=== PATIENT | female | born 1960 | race Caucasian/White ===

== ENCOUNTER 2016-12-21 11:57 | Emergency (ER) | payer MEDICARE, MEDICAID ==
[2016-12-21 13:06] LABS: BILIRUBIN,URINE NEGATIVE (NEGATIVE)
[2016-12-21] MEDS ORDERED: oxyCOD/ACETAMIN 5 MG/325 MG TABLET PO STA (13:17)
--- NOTE | 2016-12-21 13:20 | ED Physician Documentation ---
PD HPI BACK PAIN - Stated complaint Stated Complaint: BACK PX - Chief complaint Chief Complaint: Back Pain - History obtained from History obtained from: Patient - History of Present Illness Timing - onset: Other (56-year-old woman with history of chronic back pain due to scoliosis and degenerative disc disease has moved to the area recently and is between pain management doctors, has a new appointment next week but needs a few pain pills because her back pain is worse than normal, it is in the low lumbar spine radiating up into the parathoracic area up to the shoulders and worse with motion. There is no weakness, numbness, or tingling in the legs or extremities except for chronic right leg numbness over the lateral calf. No saddle anesthesia or incontinence, no fevers.) Review of Systems Constitutional: denies: Fever, Chills Throat: denies: Dental pain / toothache, Sore throat Cardiac: denies: Chest pain / pressure, Palpitations Respiratory: denies: Dyspnea, Cough PD PAST MEDICAL HISTORY - Past Medical History Past Medical History: Yes Cardiovascular: Hypertension, High cholesterol Respiratory: None Neuro: Headache/migraine, Seizure disorder Endocrine/Autoimmune: None GI: None : None HEENT: Chronic vision loss Psych: Depression, Anxiety Musculoskeletal: Scoliosis Derm: None - Past Surgical History Past Surgical History: Yes 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 - Present Medications Home Medications: Ambulatory Orders Medication Instructions Recorded Confirmed Amitriptyline [Elavil] 10 mg PO DAILY 12/21/16 12/21/16 Atenolol 25 mg PO BID 12/21/16 12/21/16 Baclofen [Lioresal] 10 mg PO BID 12/21/16 12/21/16 Hydrochlorothiazide 25 mg PO DAILY 12/21/16 12/21/16 Naproxen 375 mg PO BID 12/21/16 12/21/16 Ondansetron [Zofran Odt] 4 mg PO DAILY 12/21/16 12/21/16 Oxycodone HCl/Acetaminophen 1 - 2 tab PO Q4H PRN #15 tablet 12/21/16 [Percocet 5-325 mg Tablet] Prazosin [Minipress] 1 mg PO DAILY 12/21/16 12/21/16 Rosuvastatin Calcium 1 tab PO DAILY 12/21/16 12/21/16 busPIRone [Buspar] 5 mg PO PRN PRN 12/21/16 12/21/16 - Allergies Allergies/Adverse Reactions: Allergies Allergy/AdvReac Type Severity Reaction Status Date / Time No Known Drug Allergies Allergy Verified 11/03/14 17:46 - Social History Does the pt smoke?: No Smoking Status: Never smoker Does the pt drink ETOH?: Yes Does the pt have substance abuse?: No - Immunizations Immunizations are current?: Yes PD ED PE NORMAL - Vitals Vital signs reviewed: Yes - General General: Alert and oriented X 3, No acute distress - Abdomen Abdomen: Normal bowel sounds, Soft, Non tender - Back Back: No CVA TTP, No spinal TTP - Extremities Extremities: Other (The patient has equal and normal Achilles and patellar reflexes bilaterally. Normal sensation in all areas of the legs. Patient denies saddle anesthesia. Normal strength in flexion-extension at the ankles, knees, and flexion of the hips.) - Neuro Neuro: Alert and oriented X 3, Normal speech - Psych Psych: Normal mood, Normal affect Results - Vitals Vitals: Vital Signs - 24 hr 12/21/16 12:08 Temperature 36.5 C Heart Rate 68 Respiratory 16 Rate Blood Pressure 134/97 H O2 Saturation 97 Oxygen O2 Source Room air PD MEDICAL DECISION MAKING - ED course ED course: This patient has seemingly uncomplicated musculoskeletal back pain. The patient has no "red flags." Specifically denies IV drug use, fevers, incontinence, saddle anesthesia. Spinal epidural abscess was considered, given that the patient has no fever, is not diabetic, has no spinal tenderness, does not use IV drugs, and has no bilateral neurologic symptoms, the diagnosis of spinal epidural abscess is considered exceedingly unlikely. ANODIZER was reviewed, her prescription history corroborates with her story and is not currently in pain management. Discussed with her that a limited number of pain medications would be given, but she needs to keep her appointment next week. Departure - Departure Disposition: 01 Home, Self Care Clinical Impression: Back pain Qualifiers: Back pain location: low back pain Chronicity: chronic Back pain laterality: midline Sciatica presence: without sciatica Qualified Code(s): M54.5 - Low back pain; G89.29 - Other chronic pain Condition: Good Record reviewed to determine appropriate education?: Yes Instructions: ED Chronic Pain Management, ED Low Back Pain Injury Prescriptions: Oxycodone HCl/Acetaminophen [Percocet 5-325 mg Tablet] 1 - 2 tab PO Q4H PRN #15 tablet PRN Reason: Pain Comments: Call your doctor to arrange a follow-up appointment, make the next available appointment. In the interim, return anytime if worse or if new symptoms develop. As discussed further pain medications must come for your primary care physician or a pain management doctor. Your blood pressure was elevated today on check into the emergency department. This does not mean that you have hypertension, it is a common phenomenon to come to the emergency department and have elevated blood pressure. I recommend that she see your primary care physician within the week to have it rechecked when you are feeling better. Do not drink or drive while taking narcotic pain medication. Note that many narcotic pain relievers also contain Tylenol/acetaminophen. Please ensure that your total dose of acetaminophen from all sources does not exceed 3 g (3000 mg) per day. You may get constipated while on this medication. Take a stool softener such as Colace twice a day while you are on it. Also add an tkrh-qup-yojsvao laxative such as senna or MiraLAX on any day that you do not have a bowel movement. If you received a narcotic pain medication or sedative while in the emergency department, do not drive for the next 24 hours.
[2016-12-21] MEDS ORDERED: oxyCOD/ACETAMIN 5 MG/325 MG TABLET PO ONE (13:25)
[2016-12-21 13:34] VITALS: BP 147/102
[2016-12-21 13:35] LABS: UA w/ MICROSCOPIC CHARGE YES
[2016-12-21 13:56] LABS: UR CULTURE IF IND NOT INDICATED
== END 2016-12-21 13:33 | disposition home or self-care (01) ==
LOC: ED 11:57
DX: M54.5 Low back pain (principal); G89.29 Other chronic pain; R03.0 Elevated blood-pressure reading, without diagnosis of hypertension; M51.36 Other intervertebral disc degeneration, lumbar region; E78.00 Pure hypercholesterolemia, unspecified; G40.909 Epilepsy, unspecified, not intractable, without status epilepticus; M41.9 Scoliosis, unspecified
CPT/HCPCS: 81001; 99283; A9270; 81003; 87086

== ENCOUNTER 2017-02-25 09:41 | Outpatient (CLI) | payer MEDICARE, MEDICAID | END 2017-02-25 09:42 | disposition home or self-care (01) | LOC: SC 09:41 | PROVIDERS: ATTEND Internal Medicine Pulmonary Disease | DX: G47.10 Hypersomnia, unspecified (principal); G47.8 Other sleep disorders | CPT/HCPCS: 99203; G0463; 99212 ==

== ENCOUNTER 2017-04-28 19:17 | Outpatient (CLI) | payer MEDICARE, MEDICAID | END 2017-04-28 19:18 | disposition home or self-care (01) | LOC: SC 19:17 | PROVIDERS: ATTEND Internal Medicine Pulmonary Disease | DX: G47.10 Hypersomnia, unspecified (principal); R51 Headache; R06.83 Snoring | CPT/HCPCS: 95810 ==

== ENCOUNTER 2017-06-27 15:40 | Emergency (ER) | payer MEDICARE, MEDICAID ==
[2017-06-27 16:30] LABS: BASOPHILS # (AUTO) 0.1 10^3/uL (0.0-0.1); BASOPHILS % (AUTO) 0.9 %; EOSINOPHILS # (AUTO) 0.1 10^3/uL (0.0-0.7); EOSINOPHILS % (AUTO) 1.9 %; HGB - HEMOGLOBIN 12.4 g/dL (12.0-16.0); LYMPHOCYTES # (AUTO) 1.4 10^3/uL (1.5-3.5); LYMPHOCYTES % (AUTO) 19.5 %; MEAN CORPUSCULAR HEMOGLOBIN 27.4 pg (27.0-31.0); MEAN CORPUSCULAR HGB CONC 32.1 g/dL (32.0-36.0); MEAN CORPUSCULAR VOLUME 85.4 fL (81.0-99.0); MEAN PLATELET VOLUME 8.6 fL (7.9-10.8); MONOCYTES # (AUTO) 0.6 10^3/uL (0.0-1.0); MONOCYTES % (AUTO) 7.9 %; NEUTROPHILS % (AUTO) 69.8 %; PLT - PLATELET COUNT 306 10^3/uL (130-450); RED BLOOD COUNT 4.51 10^6/uL (4.20-5.40); RED CELL DISTRIBUTION WIDTH 15.7 % (12.0-15.0); WHITE BLOOD COUNT 7.2 x10^3/uL (4.8-10.8)
--- NOTE | 2017-06-27 16:36 | XRAY Report ---
EXAM: CHEST RADIOGRAPHY EXAM DATE: 06/27/2017 04:02 PM. CLINICAL HISTORY: Chest pain. COMPARISON: 11/03/2014. TECHNIQUE: 2 views. FINDINGS: Lungs/Pleura: No focal opacities evident. No pleural effusion. No pneumothorax. Normal volumes. Mediastinum: Heart and mediastinal contours are unremarkable. Other: None. IMPRESSION: No acute cardiopulmonary abnormality. [facility] Referring Provider Line: [phone] SITE ID: [id number]
--- NOTE | 2017-06-27 16:36 | XRAY Preliminary Report ---
Exam: XR CHEST 2 VIEW X-RAY IMPRESSION: No acute cardiopulmonary abnormality. [facility] SITE ID: [id number]
[2017-06-27 16:43] LABS: ALBUMIN 4.6 g/dL (3.2-5.5); ALBUMIN/GLOBULIN RATIO 1.1 (1.0-2.2); BILIRUBIN,TOTAL 0.7 mg/dL (0.2-1.0); CALCIUM 9.2 mg/dL (8.5-10.3); CREATININE 1.7 mg/dL (0.4-1.0); TOTAL PROTEIN 8.8 g/dL (6.7-8.2)
--- NOTE | 2017-06-27 16:59 | ED Physician Documentation ---
PD HPI CHEST PAIN - Stated complaint Stated Complaint: CP/NUMBNESS TINGLING - Chief complaint Chief Complaint: General - History obtained from History obtained from: Patient - History of Present Illness Timing - onset: How many hours ago (5-6), Today Timing - onset during: Rest Timing - duration: Hours Timing - details: Gradual onset Quality: Aching, Sharp, Pain, Other. No: Pressure, Tightness Location: Substernal Radiation: Neck Improved by: No: Rest, Oxygen, Nitro (did not have any to try) Associated symptoms: No: Shortness of air, Diaphoresis, Nausea, Vomiting, Feeling faint / dizzy, General Weakness Similar symptoms before: Has not had sx before Review of Systems Ten Systems: 10 systems reviewed and negative Constitutional: denies: Fever, Chills Eyes: reports: Reviewed and negative Ears: reports: Reviewed and negative Nose: reports: Reviewed and negative Throat: reports: Reviewed and negative Cardiac: reports: Reviewed and negative Respiratory: reports: Reviewed and negative GI: reports: Reviewed and negative : reports: Reviewed and negative Skin: reports: Reviewed and negative Musculoskeletal: reports: Reviewed and negative Neurologic: reports: Reviewed and negative Psychiatric: reports: Reviewed and negative Endocrine: reports: Reviewed and negative Immunocompromised: reports: Reviewed and negative PD PAST MEDICAL HISTORY - Past Medical History Past Medical History: Yes Cardiovascular: Hypertension, High cholesterol Respiratory: None Neuro: Headache/migraine, Seizure disorder Endocrine/Autoimmune: None GI: None : None HEENT: Chronic vision loss Psych: Depression, Anxiety Musculoskeletal: Scoliosis Derm: None - Past Surgical History Past Surgical History: Yes 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 - Present Medications Home Medications: Ambulatory Orders Medication Instructions Recorded Confirmed Amitriptyline [Elavil] 10 mg PO DAILY 12/21/16 12/21/16 Atenolol 25 mg PO BID 12/21/16 12/21/16 Baclofen [Lioresal] 10 mg PO BID 12/21/16 12/21/16 Naproxen 375 mg PO BID 12/21/16 12/21/16 Ondansetron [Zofran Odt] 4 mg PO DAILY 12/21/16 12/21/16 Oxycodone HCl/Acetaminophen 1 - 2 tab PO Q4H PRN #15 tablet 12/21/16 [Percocet 5-325 mg Tablet] Prazosin [Minipress] 1 mg PO DAILY 12/21/16 12/21/16 Rosuvastatin Calcium 1 tab PO DAILY 12/21/16 12/21/16 busPIRone [Buspar] 5 mg PO PRN PRN 12/21/16 12/21/16 hydroCHLOROthiazide 25 mg PO DAILY 12/21/16 12/21/16 [Hydrochlorothiazide] - Allergies Allergies/Adverse Reactions: Allergies Allergy/AdvReac Type Severity Reaction Status Date / Time No Known Drug Allergies Allergy Verified 11/03/14 17:46 - Social History Does the pt smoke?: No Smoking Status: Never smoker Does the pt drink ETOH?: Yes Does the pt have substance abuse?: No - Family History Family history: reports: Non contributory. denies: Sudden - Immunizations Immunizations are current?: Yes PD ED PE NORMAL - Vitals Vital signs reviewed: Yes - General General: Alert and oriented X 3, No acute distress, Well developed/nourished - HEENT HEENT: Moist mucous membranes, Pharynx benign - Neck Neck: Supple, no meningeal sign, No adenopathy - Cardiac Cardiac: RRR, No murmur - Respiratory Respiratory: Clear bilaterally - Abdomen Abdomen: Normal bowel sounds, Soft, Non tender, Non distended - Female Female : Deferred - Rectal Rectal: Deferred - Back Back: No CVA TTP - Derm Derm: Normal color, Warm and dry - Neuro Neuro: Alert and oriented X 3, No motor deficit, Normal speech Results - Vitals Vitals: Oxygen O2 Source Room air - EKG (time done) 15:49 Rate: Rate (enter#) (56) Rhythm: NSR Lucile: Normal Intervals: Normal GA QRS: Normal Ischemia: Normal ST segments. No: ST elevation c/w ischemia, ST depression Compare to prior EKG: Old EKG unavailable - Labs Labs: Laboratory Tests 06/27/17 06/27/17 06/27/17 16:21 16:21 16:21 WBC 7.2 RBC 4.51 Hgb 12.4 Hct 38.6 MCV 85.4 MCH 27.4 MCHC 32.1 RDW 15.7 H Plt Count 306 MPV 8.6 Neut # 5.0 Lymph # 1.4 L Laporte # 0.6 Eos # 0.1 Baso # 0.1 Absolute Nucleated RBC 0.00 Nucleated RBC % 0.0 Sodium 134 L Potassium 4.5 Chloride 99 L Carbon Dioxide 26 Anion Gap 9.0 BUN 27 H Creatinine 1.7 H Estimated GFR (MDRD) 31 L Glucose 91 Calcium 9.2 Magnesium Total Bilirubin 0.7 AST 25 ALT 21 Alkaline Phosphatase 105 Troponin I < 0.04 Total Protein 8.8 H Albumin 4.6 Globulin 4.2 Albumin/Globulin Ratio 1.1 Lipase 17 L 06/27/17 06/27/17 17:52 17:52 WBC RBC Hgb Hct MCV MCH MCHC RDW Plt Count MPV Neut # Lymph # Laporte # Eos # Baso # Absolute Nucleated RBC Nucleated RBC % Sodium Potassium Chloride Carbon Dioxide Anion Gap BUN Creatinine Estimated GFR (MDRD) Glucose Calcium Magnesium 2.5 Total Bilirubin AST ALT Alkaline Phosphatase Troponin I < 0.04 Total Protein Albumin Globulin Albumin/Globulin Ratio Lipase - Rads (name of study) chest xray Radiology: Prelim report reviewed, EMP read contemporaneously (normal) neck angio Radiology: Prelim report reviewed (no signs of blockages, dissection, anueyrms, masses.) PD MEDICAL DECISION MAKING - ED course Complexity details: reviewed results, considered differential, d/w patient Departure - Departure Disposition: Home, Self Care Clinical Impression: Neck pain Chest pain Qualifiers: Chest pain type: precordial pain Qualified Code(s): R07.2 - Precordial pain Condition: Stable Record reviewed to determine appropriate education?: Yes Instructions: ED Chest Pain NonCardiac Follow-Up: Leigh Brooks DNP [Primary Care Provider] - Comments: Drink lots of fluids. Regular medications. No signs of heart attack or heart failure as a cause of the chest pain. Your EKG is normal as are your blood tests and x-ray. The neck CT scan appears normal without any signs of acute abnormality there. Tylenol if needed for pains. Follow-up with your primary care in the next few days if not improved. Discharge Date/Time: 06/27/17 20:10
[2017-06-27] MEDS ORDERED: SODIUM CHLORIDE 0.9% 1,000 ML IV ONE (17:39)
--- NOTE | 2017-06-27 18:50 | CT Preliminary Report ---
Exam: CT CERVICAL SPINE W/O IMPRESSION: 1. Negative for fracture and subluxation. 2. Moderate degenerative disk disease at C5-C7. [facility] SITE ID: [id number]
--- NOTE | 2017-06-27 18:50 | CT Report ---
EXAM: CT CERVICAL SPINE WITHOUT CONTRAST DATE: 06/27/2017 06:22 PM. HISTORY: Neck pain today. COMPARISONS: None. TECHNIQUE: Thin-section axial images were acquired of the cervical spine without contrast. Post-proce ssing: Coronal and sagittal reformats. Other: None. In accordance with CT protocol optimization, one or more of the following dose reduction techniques w ere utilized for this exam: automated exposure control, adjustment of mA and/or KV based on patient s ize, or use of iterative reconstructive technique. FINDINGS: Alignment: No significant subluxation or scoliosis. Bones: Negative for an acute fracture. There is multilevel degenerative disease. No lytic or blastic bone lesion. Interspace Levels/Facets: There is moderate disk height loss at C5-C6 and C6-C7. There is moderate facet joint space narrowing and spurring in the upper cervical spine. No significant central spinal canal stenosis. Musculature: Normal. No fatty atrophy. Other: Trachea is midline. Negative for apical pneumothorax. IMPRESSION: 1. Negative for fracture and subluxation. 2. Moderate degenerative disk disease at C5-C7. [facility] Referring Provider Line: [phone] SITE ID: [id number]
[2017-06-27 19:36] VITALS: BP 152/82
== END 2017-06-27 20:10 | disposition home or self-care (01) ==
LOC: ED 15:40
DX: M54.2 Cervicalgia (principal); R07.9 Chest pain, unspecified; I10 Essential (primary) hypertension; E78.00 Pure hypercholesterolemia, unspecified
CPT/HCPCS: 36415; 71046; 72125; 80053; 83690; 83735; 84484; 85025; 93005; 96360; 96361; 99283; 99284

== ENCOUNTER 2017-10-30 14:40 | Outpatient (CLI) | payer MEDICARE, MEDICAID ==
[2017-10-30 18:53] LABS: BASOPHILS % (AUTO) 0.3 %; EOSINOPHILS # (AUTO) 0.1 10^3/uL (0.0-0.7); EOSINOPHILS % (AUTO) 1.8 %; HGB - HEMOGLOBIN 11.8 g/dL (12.0-16.0); LYMPHOCYTES # (AUTO) 1.7 10^3/uL (1.5-3.5); LYMPHOCYTES % (AUTO) 34.5 %; MEAN CORPUSCULAR HEMOGLOBIN 28.4 pg (27.0-31.0); MEAN CORPUSCULAR HGB CONC 31.6 g/dL (32.0-36.0); MEAN CORPUSCULAR VOLUME 89.9 fL (81.0-99.0); MEAN PLATELET VOLUME 12.7 fL (7.9-10.8); MONOCYTES # (AUTO) 0.4 10^3/uL (0.0-1.0); MONOCYTES % (AUTO) 8.9 %; NEUTROPHILS # (AUTO) 2.6 10^3/uL (1.5-6.6); NEUTROPHILS % (AUTO) 54.5 %; PLT - PLATELET COUNT 268 10^3/uL (130-450); RED BLOOD COUNT 4.15 10^6/uL (4.20-5.40); WHITE BLOOD COUNT 4.8 x10^3/uL (4.8-10.8)
== END 2017-10-30 14:41 ==
LOC: LAB.N 14:40
PROVIDERS: ATTEND Nurse Practitioner Gerontology
DX: E04.9 Nontoxic goiter, unspecified (principal); I10 Essential (primary) hypertension
CPT/HCPCS: 36415; 84443; 85025

== ENCOUNTER 2017-11-14 11:50 | Outpatient (CLI) | payer MEDICARE, MEDICAID ==
[2017-11-14 19:12] LABS: ALBUMIN/GLOBULIN RATIO 1.3 (1.0-2.2); ALKALINE PHOSPHATASE 83 IU/L (42-121); ALT ALANINE AMINOTRANSFERASE 11 IU/L (10-60); AST ASPARTATE AMINOTRANSFERASE 19 IU/L (10-42); BILIRUBIN,TOTAL 0.4 mg/dL (0.2-1.0); BUN - BLOOD UREA NITROGEN 15 mg/dL (6-20); CALCIUM 8.9 mg/dL (8.5-10.3); CARBON DIOXIDE - CO2 27 mmol/L (21-32); CHLORIDE 106 mmol/L (101-111); CHOL/HDL RATIO 8.2 (<4.4); CHOLESTEROL 287 mg/dL; CREATININE 1.2 mg/dL (0.4-1.0); GFR - MDRD 47 (>89); GLUCOSE 108 mg/dL (70-100); HDL CHOLESTEROL 35 mg/dL; LDL CHOLESTEROL,CALCULATED 192 mg/dL; LDL/HDL RATIO 5.5 (<4.4); SODIUM 137 mmol/L (135-145); TOTAL PROTEIN 7.2 g/dL (6.7-8.2); VLDL CHOLESTEROL 60 mg/dL
== END 2017-11-14 11:51 ==
LOC: LAB.N 11:50
PROVIDERS: ATTEND Nurse Practitioner Gerontology
DX: I10 Essential (primary) hypertension (principal); E78.5 Hyperlipidemia, unspecified
CPT/HCPCS: 36415; 80053; 80061; 83721

== ENCOUNTER 2020-02-04 13:15 | Outpatient (CLI) | payer MEDICARE, MEDICAID | END 2020-02-04 23:59 | disposition home or self-care (01) | LOC: LAB.R 13:15 | PROVIDERS: ATTEND Physician Assistant | DX: N76.0 Acute vaginitis (principal); N30.01 Acute cystitis with hematuria | CPT/HCPCS: 81599; 87086; 87181; 87480; 87510; 87660 ==

== ENCOUNTER 2020-02-10 16:30 | Outpatient (CLI) | payer MEDICARE, MEDICAID ==
[2020-02-10 21:11] LABS: BILIRUBIN,URINE NEGATIVE (NEGATIVE); GLUCOSE, URINE (UA) NEGATIVE (NEGATIVE); KETONES,URINE (UA) NEGATIVE (NEGATIVE); LEUKOCYTE ESTERASE, URINE NEGATIVE (NEGATIVE); NITRITE,URINE NEGATIVE (NEGATIVE); OCCULT BLOOD,URINE NEGATIVE (NEGATIVE); PROTEIN,URINE NEGATIVE (NEGATIVE); UROBILINOGEN,URINE 0.2 (NORMAL) E.U./dL (NORMAL)
[2020-02-10 21:20] LABS: BACTERIA,URINE Few /HPF (None Seen); CLARITY,URINE CLEAR (CLEAR); RBC,URINE None Seen /HPF (0-5); SQUAMOUS EPITHELIAL CELL,UR MANY Squamous (<= Few)
== END 2020-02-10 23:59 | disposition home or self-care (01) ==
LOC: LAB.R 16:30
PROVIDERS: ATTEND Physician Assistant Medical
DX: R30.0 Dysuria (principal)
CPT/HCPCS: 81001; 87086

== ENCOUNTER 2020-03-04 09:32 | Emergency (ER) | payer MEDICARE, MEDICAID ==
--- NOTE | 2020-03-04 10:11 | ED Physician Documentation ---
History of Present Illness - Stated complaint Stated Complaint: HEADACHE - Chief complaint Chief Complaint: Back Pain - History obtained from History obtained from: Patient - History of Present Illness Timing: How many weeks ago (worse for the past week), Chronic Pain level max: 7 Pain level now: 7 - Additonal information Additional information: 59-year-old female states that she has chronic neck and back pain from scoliosis. She states that her pain is increased over the past week or 2. Has used steroids and hydrocodone in the past. No neurological deficits. No numbness or tingling. No trauma. 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 - Present Medications Home Medications: Ambulatory Orders Medication Instructions Recorded Confirmed Amitriptyline [Elavil] 10 mg PO DAILY 12/21/16 12/21/16 hydroCHLOROthiazide 25 mg PO DAILY 12/21/16 12/21/16 [Hydrochlorothiazide] FLUoxetine [PROzac] 40 mg PO DAILY 03/04/20 03/04/20 HYDROcod/ACETAM 5/325 [[place] 5/325] 1 - 2 ea PO Q6H PRN #14 tablet 03/04/20 Ibuprofen [Motrin] 600 mg PO Q6H PRN 03/04/20 03/04/20 Methylprednisolone [Medrol] 4 mg PO DAILY #1 tab.ds.pk 03/04/20 Propranolol [Inderal] 40 mg PO BID 03/04/20 03/04/20 tiZANidine [Zanaflex] 4 mg PO Q8H 03/04/20 03/04/20 - Allergies Allergies/Adverse Reactions: Allergies Allergy/AdvReac Type Severity Reaction Status Date / Time No Known Drug Allergies Allergy Verified 03/04/20 09:43 - Social History Does the pt smoke?: No Smoking Status: Never smoker Does the pt drink ETOH?: Yes Does the pt have substance abuse?: No - Immunizations Immunizations are current?: Yes PD ED PE NORMAL - Vitals Vital signs reviewed: Yes - General General: Alert and oriented X 3, No acute distress - HEENT HEENT: Moist mucous membranes - Neck Neck: Supple, no meningeal sign, No bony TTP - Cardiac Cardiac: RRR - Respiratory Respiratory: No respiratory distress, Clear bilaterally - Abdomen Abdomen: Soft, Non tender, Non distended - Back Back: No spinal TTP - Derm Derm: Warm and dry - Extremities Extremities: Normal ROM s pain - Neuro Neuro: Alert and oriented X 3, 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 Will prescribe her a small amount of pain medication and place her on a Medrol dose pack. We will have her follow-up with her doctor for further care. No acute neurological deficits. No trauma. Medication for imaging at this time. Patient counseled regarding signs and symptoms for which I believe and urgent re-evaluation would be necessary. Patient with good understanding of and agreement to plan and is comfortable going home at this time This document was made in part using voice recognition software. While efforts are made to proofread this document, sound alike and grammatical errors may occur. Departure - Departure Disposition: 01 Home, Self Care Clinical Impression: Neck pain Back pain Qualifiers: Back pain location: thoracic back pain Chronicity: chronic Back pain laterality: bilateral Qualified Code(s): M54.6 - Pain in thoracic spine Condition: Good Instructions: ED Neck Back Pain General Follow-Up: Beronica Dixon ARNP [Primary Care Provider] - Within 1 week Prescriptions: Methylprednisolone [Medrol] 4 mg PO DAILY #1 tab.ds.pk HYDROcod/ACETAM 5/325 [[place] 5/325] 1 - 2 ea PO Q6H PRN #14 tablet PRN Reason: Pain Comments: Use the medications as prescribed. Follow-up with your doctor for further care. Return if you worsen. Do not drink alcohol or drive while on narcotic pain medicine. Note that many narcotic pain relievers also contain tylenol/acetaminophen. Please ensure that your total dose of acetaminophen from all sources does not exceed 3 grams (3000mg) per day. You may constipated on this medication, take a stool softener such as "Colace" twice a day while you are on it. Also recommend a dmcp-ajh-wlibhig laxative such as senna or MiraLAX any day that you do not have a bowel movement. If you received narcotic pain medication in the emergency department, do not drive or operate machinery for the next 24 hours. Discharge Date/Time: 03/04/20 10:20
[2020-03-04 10:12] VITALS: BP 146/100
== END 2020-03-04 10:20 | disposition home or self-care (01) ==
LOC: ED 09:32
DX: M54.2 Cervicalgia (principal); M54.6 Pain in thoracic spine; I10 Essential (primary) hypertension
CPT/HCPCS: 99282; 99284

== ENCOUNTER 2020-06-15 08:45 | Outpatient (CLI) | payer MEDICARE, MEDICAID ==
--- NOTE | 2020-06-15 10:07 | XRAY Report ---
PROCEDURE: Cervical Spine 2 View INDICATIONS: LOWER CERVICAL PAIN TECHNIQUE: 3 view(s) of the cervical spine were acquired. COMPARISON: CT cervical spine, 06/27/2017. FINDINGS: Bones: No fractures or dislocations to the T1 level. There is grade 1 anterolisthesis of C4 on C5. Moderate degenerative disc disease at C5-C6 and C6-C7. The lateral facet arthropathy at multiple leve ls, most pronounced at C3-C4, C4-C5 and C5-C6. The lateral masses of C1 appear intact on the odontoid view. No suspicious bony lesions. Soft tissues: No prevertebral soft tissue swelling. IMPRESSION: Degenerative disc and facet disease in cervical spine as described. Reviewed by: Laverne Subramanian MD on 06/15/2020 10:05 AM PDT Approved by: Laverne Subramanian MD on 06/15/2020 10:05 AM PDT Station ID: [id number]
--- NOTE | 2020-06-15 13:26 | XRAY Report ---
PROCEDURE: Lumbar Spine w/Flex/Ext INDICATIONS: FLEX EXT. TO EVALUATE STABILITY W/GRADING TECHNIQUE: 5 views of the lumbar spine acquired. COMPARISON: X-ray lumbar spine,3 view, 05/19/2013. FINDINGS: Bones: 5 apw-euz-eimavvj vertebrae are present. There is trace anterolisthesis of L3 on L4 and L4 o n L5, which is increased on flexion. No vertebral body compression fractures. No suspicious bony le sions. There is degenerative disease, severe at L5-S1 and mild at L3-L4 and L4-L5. Severe facet arth ropathy at L4-L5 and L5-S1. Soft tissues: Overlying bowel gas pattern is normal. No suspicious soft tissue calcifications. Flexion/extension: There is decreased range of motion. The anterolisthesis at L3-L4 and L4-L5 appear s more pronounced with flexion and unchanged with extension. IMPRESSION: 1. Degenerative disc and facet disease in lumbar spine. 2. Grade 1 anterolisthesis at L3-L4 and L4-L5, which is more pronounced with flexion. Reviewed by: Laverne Subramanian MD on 06/15/2020 1:25 PM PDT Approved by: Laverne Subramanian MD on 06/15/2020 1:25 PM PDT Station ID: [id number]
== END 2020-06-15 08:46 | disposition home or self-care (01) ==
LOC: DI.S 08:45
PROVIDERS: ATTEND Registered Nurse
DX: M43.12 Spondylolisthesis, cervical region (principal); M47.812 Spondylosis without myelopathy or radiculopathy, cervical region; M50.322 Other cervical disc degeneration at C5-C6 level; M43.16 Spondylolisthesis, lumbar region; M47.816 Spondylosis without myelopathy or radiculopathy, lumbar region; M51.36 Other intervertebral disc degeneration, lumbar region

== ENCOUNTER 2021-06-04 12:18 | Outpatient (CLI) | payer MEDICARE, MEDICAID | END 2021-06-04 12:19 | disposition critical access hospital (66) | LOC: EMS 12:18 | DX: M54.2 Cervicalgia (principal); M54.9 Dorsalgia, unspecified | CPT/HCPCS: A0425; A0429 ==

== ENCOUNTER 2021-06-04 12:55 | Emergency (ER) | payer MEDICARE, MEDICAID ==
[2021-06-04] MEDS ORDERED: predniSONE 20 MG TABLET PO STA (13:05)
[2021-06-04] MEDS ORDERED: oxyCODONE 5 MG TABLET PO STA (13:05)
--- NOTE | 2021-06-04 13:08 | ED Physician Documentation ---
PD HPI NECK PAIN - Stated complaint Stated Complaint: NECK PX - History obtained from History obtained from: Patient - Additional information Additional information: 61-year-old woman who has had ongoing neck problems since the age of 18 when she had an accident. More recently has been in physical therapy for this and this week they put her in a soft collar. Since then she has developed increasing neck pain and a pins and needle sensation in the neck going up into the occiput and both hands. There is no wvpy-wes-tkjrqir nor numbness at this juncture. She denies any numbness or symptoms below the chest and there is no saddle anest hesia or incontinence. No fevers. She is on meloxicam and Flexeril for this which is insufficient. 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 - Present Medications Home Medications: Ambulatory Orders Medication Instructions Recorded Confirmed Amitriptyline [Elavil] 10 mg PO DAILY 12/21/16 12/21/16 hydroCHLOROthiazide 25 mg PO DAILY 12/21/16 12/21/16 [Hydrochlorothiazide] FLUoxetine [PROzac] 40 mg PO DAILY 03/04/20 03/04/20 HYDROcod/ACETAM 5/325 [Gering 5/325] 1 - 2 ea PO Q6H PRN #14 tablet 03/04/20 Ibuprofen [Motrin] 600 mg PO Q6H PRN 03/04/20 03/04/20 Propranolol [Inderal] 40 mg PO BID 03/04/20 03/04/20 methylPREDNISolone [Medrol] 4 mg PO DAILY #1 tab.ds.pk 03/04/20 tiZANidine [Zanaflex] 4 mg PO Q8H 03/04/20 03/04/20 Oxycodone HCl/Acetaminophen 1 - 2 each PO Q6H PRN #20 tablet 06/04/21 [Percocet 5-325 mg Tablet] predniSONE [Deltasone] 20 mg PO [id number] #21 tab 06/04/21 - Allergies Allergies/Adverse Reactions: Allergies Allergy/AdvReac Type Severity Reaction Status Date / Time No Known Drug Allergies Allergy Verified 06/04/21 13:04 - Social History Does the pt smoke?: No Smoking Status: Never smoker Does the pt drink ETOH?: Yes Does the pt have substance abuse?: No - Immunizations Immunizations are current?: Yes - POLST Patient has POLST: No PD ED PE NORMAL - Vitals Vital signs reviewed: Yes - General General: Alert and oriented X 3, No acute distress - HEENT HEENT: PERRL, EOMI - Neck Neck: Other (Mild tenderness to the upper neck, full range of motion) - Back Back: No CVA TTP, No spinal TTP - Derm Derm: Normal color, Warm and dry - Neuro Neuro: Alert and oriented X 3, No motor deficit, Normal speech, Other (Mildly diminished sensation diffusely in the right arm not in a dermatomal pattern with normal excellence manager strength, thumb extension, interosseous strength, and flexion extension of the wrist. Normal upper extremity reflexes.) Results - Vitals Vitals: Oxygen O2 Source Room air PD MEDICAL DECISION MAKING - ED course ED course: 61-year-old woman presents with cervical radiculopathy and some symptoms consistent with spinal stenosis. Discussed with her nonemergent need for outpatient work-up for same and will treat pain in the interim. Departure - Departure Disposition: 01 Home, Self Care Clinical Impression: Spinal stenosis Qualifiers: Spinal region: cervical Qualified Code(s): M48.02 - Spinal stenosis, cervical region Condition: Good Record reviewed to determine appropriate education?: Yes Instructions: ED Cervical Radiculopathy Prescriptions: predniSONE [Deltasone] 20 mg PO [id number] #21 tab Oxycodone HCl/Acetaminophen [Percocet 5-325 mg Tablet] 1 - 2 each PO Q6H PRN #20 tablet PRN Reason: pain Comments: As discussed, it seems like you are probably developing symptomatic spinal stenosis. Talk with your doctor about an MRI of your neck. I sent your prescriptions electronically to [facility] in [place]. Return for new or worsening symptoms. I am prescribing a short course of narcotic pain medication for you. These are potentially dangerous and addictive medications that should be used carefully. These medications may constipate you. Take an yvgl-onm-ehclhkx stool softener (docusate) twice daily with plenty of water while taking these medications. If you go 24 hours without a bowel movement, take slau-qbb-ddfnhiz miralax, per package instructions. Do not drink or drive while taking these medications. If you received narcotic or sedating medications while in the emergency department, do not drive for 24 hours. Store this medication in a safe, secure place and out of reach of children. It is a violation of federal law to give or sell this medication to another person or to use in a manner other than prescribed. The ED will not refill narcotic prescriptions, including prescriptions lost or stolen. To dispose of unwanted medications: 1. [facility] [address] in [place] has a medication drop box. They accept prescription medications (in pill form) Saturday through Saturday 9:00 a.m. to 5:00 p.m. 2. [facility] accepts prescription medications (in pill form only) for disposal year round. Call for more information. 3. Contact the [facility] for the next [facility] sponsored prescription drug collection event. , [phone], or [phone]; Note that many narcotic pain relievers also contain Tylenol/acetaminophen. Please ensure that your total dose of acetaminophen from all sources does not exceed 3 g (3000 mg) per day.
[2021-06-04 13:15] VITALS: BP 185/90
== END 2021-06-04 15:47 | disposition home or self-care (01) ==
LOC: EDUNIT# → ED 12:55
DX: M48.02 Spinal stenosis, cervical region (principal)
CPT/HCPCS: 99282; 99283; A9270; J7512

== ENCOUNTER 2021-06-26 08:07 | Outpatient (CLI) | payer MEDICARE, MEDICAID ==
--- NOTE | 2021-06-26 16:18 | MRI Report ---
PROCEDURE: Cervical Spine W/O INDICATIONS: CERVICAL RADICULOPATHY, RIGHT TECHNIQUE: Noncontrast sagittal T1 spin echo and T2 fast spin echo, sagittal STIR, foraminal oblique sagittal T2 fast spin echo, and axial gradient echo or T2 fast spin echo through the cervical spine. COMPARISON: None. FINDINGS: Image quality: Excellent. Alignment and Curvature: There is normal bony alignment. Bone Marrow: Marrow demonstrates normal overall signal. Spinal Cord: Visualized spinal cord has normal size and signal. No cerebellar tonsillar herniation. Paraspinous Soft Tissues: No paravertebral masses. Prevertebral soft tissues are normal in thicknes s. C2-C3: Loss of disc signal. Mild, diffuse disc bulge. No central stenosis. No neural foraminal narrow ing. No neural compression. C3-C4: Loss of disc signal. Mild, diffuse disc bulge. Mild right and moderate left facet hypertroph y. No central stenosis. Mild bilateral neural foraminal narrowing. No neural compression. C4-C5: Loss of disc signal. Mild, diffuse disc bulge. Moderate right and mild left facet hypertrophy . Mild narrowing of the central canal. Mild bilateral neural foraminal narrowing. No neural compressi on. C5-C6: Loss of disc signal and height. Moderate, diffuse disc bulge. Mild bilateral facet hypertroph y. Moderate bilateral uncovertebral joint hypertrophy. Severe narrowing of the central canal with sli ght compression of the cervical spinal cord. Severe bilateral neural foraminal narrowing with ya pam of the exiting bilateral C6 nerve roots. C6-C7: Loss of disc signal and height. Mild, diffuse disc bulge. Mild bilateral facet hypertrophy. M oderate bilateral uncovertebral joint hypertrophy. Moderate narrowing of the central canal. Moderate bilateral neural foraminal narrowing. No neural compression. C7-T1: Loss of disc signal. Mild, diffuse disc bulge. No central stenosis. No neuroforaminal narrowi ng. No neural compression IMPRESSION: 1. Multilevel degenerative disc disease. 2. Multilevel facet uncovertebral arthropathy. 3. Severe C5-C6 central canal narrowing with slight compression of the cervical spinal cord. 4. Severe bilateral C5-C6 neural foraminal narrowing with compression of the exiting bilateral C6 ner ve roots. Reviewed by: Christiana Daly MD, PhD on 06/26/2021 4:17 PM PDT Approved by: Christiana Daly MD, PhD on 06/26/2021 4:17 PM PDT Station ID: [id number]
== END 2021-06-26 08:08 | disposition home or self-care (01) ==
LOC: DI 08:07
PROVIDERS: ATTEND Emergency Medicine
DX: M50.11 Cervical disc disorder with radiculopathy, high cervical region (principal); M48.02 Spinal stenosis, cervical region; M47.22 Other spondylosis with radiculopathy, cervical region

== ENCOUNTER 2023-09-30 08:16 | Emergency (ER) | payer MEDICARE, MEDICAID ==
[2023-09-30 08:30] VITALS: O2SAT 100
--- NOTE | 2023-09-30 09:20 | ED Physician Documentation ---
History of Present Illness - Stated complaint Stated Complaint: NUMBNESS-NECK TO ARMS, SOA - Chief complaint Chief Complaint: Neuro - History obtained from History obtained from: Patient, Family - History of Present Illness Timing: How many weeks ago (1) - Additonal information Additional information: 63-year-old Shivani aguayo has a history of degenerative disc disease in her neck and she has a history of cervical radiculopathy. She has had evaluation for sleep neck surgery at the [facility] and at a facility in [place]. She is recently returned from [place] and with the travel she has developed some increase in numbness in her upper shoulders and to the upper portion of her chest. Associated with this she has been having some flopping of her neck and she will choke periodically when her neck flops forward. She is using a soft collar and she has not used a hard collar previously. She is complaining of some urinary burning and a burning to the urethra that is constant as well. She denies history of HSV. Review of Systems Constitutional: reports: Myalgias, Fatigue. denies: Fever Eyes: denies: Decreased vision Ears: denies: Ear pain Nose: denies: Rhinorrhea / runny nose, Congestion Throat: denies: Sore throat Cardiac: denies: Chest pain / pressure, Palpitations Respiratory: denies: Dyspnea, Cough GI: reports: Nausea. denies: Abdominal Pain, Vomiting, Constipation, Diarrhea : reports: Dysuria, Frequency Skin: denies: Rash Musculoskeletal: reports: Neck pain. denies: Back pain, Extremity pain Neurologic: reports: Numbness. 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 - Present Medications Home Medications: Ambulatory Orders Medication Instructions Recorded Confirmed Ibuprofen [Motrin] 600 mg PO Q6H PRN 03/04/20 09/30/23 Baclofen [Lioresal] 1 tab PO DAILY 09/30/23 09/30/23 Ciprofloxacin HCl [Cipro] 500 mg PO BID #14 tablet 09/30/23 HYDROcod/ACETAM 5/325 [[place]el[place] 5/325] 1 - 2 tablet PO Q6H PRN #14 tablet 09/30/23 Hydromorphone HCl [Dilaudid] 1 tab PO PRN PRN 09/30/23 09/30/23 Lisinopril [Zestril] 1 tab PO DAILY 09/30/23 09/30/23 - Allergies Allergies/Adverse Reactions: Allergies Allergy/AdvReac Type Severity Reaction Status Date / Time No Known Drug Allergies Allergy Verified 09/30/23 08:29 - Social History Does the pt smoke?: No Smoking Status: Never smoker Does the pt drink ETOH?: Yes Does the pt have substance abuse?: No - Immunizations Immunizations are current?: Yes - POLST Patient has POLST: No PD ED PE NORMAL - Vitals Vital signs reviewed: Yes (normal ) - General General: Alert and oriented X 3, No acute distress, Well developed/nourished - HEENT HEENT: Atraumatic, PERRL, EOMI - Neck Neck: Supple, no meningeal sign, No bony TTP - Cardiac Cardiac: RRR, No murmur - Respiratory Respiratory: No respiratory distress, Clear bilaterally - Abdomen Abdomen: Soft, Non tender - Back Back: No CVA TTP, No spinal TTP - Derm Derm: Normal color, Warm and dry, No rash - Extremities Extremities: No deformity, No edema - Neuro Neuro: Alert and oriented X 3, 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, No motor deficit, No sensory deficit, Normal speech Eye Opening: Spontaneous Motor: Obeys Commands Verbal: Oriented GCS Score: 15 - Psych Psych: Normal mood, Normal affect Results - Vitals Vitals: Vital Signs - 24 hr 09/30/23 08:23 Temperature 36.5 C Heart Rate 72 Respiratory 20 Rate Blood Pressure 110/69 O2 Saturation 100 Oxygen O2 Source Room air - Labs Labs: Laboratory Tests 09/30/23 08:39 Urine Color YELLOW Urine Clarity HAZY Urine pH 6.0 Ur Specific [place] 1.025 Urine Protein TRACE Urine Glucose (UA) NEGATIVE Urine Ketones NEGATIVE Urine Occult Blood NEGATIVE Urine Nitrite POSITIVE H Urine Bilirubin NEGATIVE Urine Urobilinogen 0.2 (NORMAL) Ur Leukocyte Esterase SMALL H Urine RBC 0-5 Urine WBC >25 H Urine WBC Clumps PRESENT Ur Squamous Epith Cells FEW Squamous Urine Bacteria Moderate H Ur Microscopic Review INDICATED Urine Culture Comments INDICATED PD Medical Decision Making - ED course Complexity details: considered differential, d/w patient, d/w family Reviewed Lab Results: We reviewed a urinalysis which showed a specific gravity 1.025 was positive for nitrite with small leukocyte Estrace and greater than 25 white blood cells per high-powered field moderate bacteria and it did make the grade for culture.I interpreted these laboratory results to indicate the patient has urinary tract infection and she is symptomatic we will treat. ED course: 63-year-old female the history of cervical radiculopathy presents with increased pain and urinary symptoms has urinary tract infection we will treat urinary t ract infection we have provided a dose of dexamethasone the patient is having some improvement with this and she will need follow-up with her primary care doctor for referral to neurosurgery at the [facility]. Departure - Departure Disposition: 01 Home, Self Care Clinical Impression: Cervical radiculopathy UTI (urinary tract infection) Qualifiers: Urinary tract infection type: acute cystitis Hematuria presence: without hematuria Qualified Code(s): N30.00 - Acute cystitis without hematuria Condition: Stable Instructions: ED Cervical Radiculopathy, ED UTI Cystitis Female Follow-Up: Kim Mcdonald MD [Primary Care Provider] - Prescriptions: Ciprofloxacin HCl [Cipro] 500 mg PO BID #14 tablet HYDROcod/ACETAM 5/325 [Kelso 5/325] 1 - 2 tablet PO Q6H PRN #14 tablet PRN Reason: Pain Comments: Corrina, today it looks like you have some worsening of your cervical radiculopathy and my recommendation for this is to follow-up with Kim Mcdonald for referral back to the [facility] for further consideration of potential surgical intervention. Today we gave you a dose of dexamethasone and this should improve your symptoms over the next day and last about 2 to 3 days. In addition we found today that you have a urinary tract infection and I have E scribed some ciprofloxacin to the [facility] in [place]. In addition we have provided some narcotic pain reliever to use for the cervical radiculopathy. Forms: PCP List
[2023-09-30] MEDS: CHERRY SYRUP 10 ML UDC PO ONE (09:24)
[2023-09-30] MEDS: DEXAMETHASONE 10 MG/ML VIAL PO STA (09:24)
[2023-09-30 10:08] LABS: BILIRUBIN,URINE NEGATIVE (NEGATIVE); CLARITY,URINE HAZY (CLEAR); GLUCOSE, URINE (UA) NEGATIVE (NEGATIVE); KETONES,URINE (UA) NEGATIVE (NEGATIVE); LEUKOCYTE ESTERASE, URINE SMALL (NEGATIVE); NITRITE,URINE POSITIVE (NEGATIVE); OCCULT BLOOD,URINE NEGATIVE (NEGATIVE); PROTEIN,URINE TRACE mg/dL (NEGATIVE); UROBILINOGEN,URINE 0.2 (NORMAL) E.U./dL (NORMAL)
[2023-09-30 10:22] LABS: BACTERIA,URINE Moderate /HPF (None Seen); RBC,URINE 0-5 /HPF (0-5); SQUAMOUS EPITHELIAL CELL,UR FEW Squamous (<= Few); WBC CLUMPS,URINE PRESENT; WBC,URINE >25 /HPF (0-5)
[2023-09-30 10:56] VITALS: BP 122/82
== END 2023-09-30 10:53 | disposition home or self-care (01) ==
LOC: ED 08:16
DX: M54.12 Radiculopathy, cervical region (principal); N30.00 Acute cystitis without hematuria; I10 Essential (primary) hypertension; E78.00 Pure hypercholesterolemia, unspecified; F32.A Depression, unspecified; F41.9 Anxiety disorder, unspecified
CPT/HCPCS: 81001; 87086; 87181; 99283; A9270; 81003

== ENCOUNTER 2023-10-29 12:04 | Emergency (ER) | payer MEDICAID, MEDICARE ==
--- NOTE | 2023-10-29 12:21 | ED Physician Documentation ---
PD HPI NECK PAIN - Stated complaint Stated Complaint: NECK PX, CHEST NUMBNESS - Chief complaint Chief Complaint: Trauma Hd/Nk - History obtained from History obtained from: Patient - History of Present Illness Timing - onset: Today, How many days ago (She has had pain in her neck with previous imaging showing disc protrusions and nerve root impingements from the cervical area. Getting a referral to spine through her primary care. Has been wearing a collar at home for discomfort. 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 - Present Medications Home Medications: Ambulatory Orders Medication Instructions Recorded Confirmed Ibuprofen [Motrin] 600 mg PO Q6H PRN 03/04/20 09/30/23 Baclofen [Lioresal] 1 tab PO DAILY 09/30/23 09/30/23 Lisinopril [Zestril] 1 tab PO DAILY 09/30/23 09/30/23 methylPREDNISolone [Medrol] 4 mg PO DAILY #1 tab 10/29/23 - Allergies Allergies/Adverse Reactions: Allergies Allergy/AdvReac Type Severity Reaction Status Date / Time No Known Drug Allergies Allergy Verified 10/29/23 12:14 - Social History Does the pt smoke?: No Smoking Status: Never smoker Does the pt drink ETOH?: Yes Does the pt have substance abuse?: No - Immunizations Immunizations are current?: Yes - POLST Patient has POLST: No PD ED PE NORMAL - Vitals Vital signs reviewed: Yes - Neck Neck: No adenopathy, Other (She comes in wearing a [place] cervical collar that she has of her own and has worn fairly continually for the last month. She does have it off for showers and changing etc. but otherwise feels that it supports her neck.) - Cardiac Cardiac: RRR, No murmur - Respiratory Respiratory: No respiratory distress, Clear bilaterally - Abdomen Abdomen: Soft, Non tender - Derm Derm: Normal color, Warm and dry, No rash - Neuro Neuro: Alert and oriented X 3, No motor deficit, Other (There is decrease sensation to light touch in the anterior shoulders and to the bilateral anterior chest from the upper correction lower sternal area to just below the clavicles. Normal sensation below the breasts and down the rest of the abdomen. Normal sensation in the legs.) Results - Vitals Vitals: Vital Signs - 24 hr 10/29/23 10/29/23 10/29/23 12:08 12:14 12:21 Temperature 36.5 C Heart Rate 57 L 64 61 Respiratory 19 16 17 Rate Blood Pressure 129/82 H 118/72 149/87 H O2 Saturation 99 97 99 10/29/23 10/29/23 10/29/23 14:23 14:41 16:25 Temperature 36.3 C L Heart Rate 51 L 68 Respiratory 14 14 16 Rate Blood Pressure 93/75 106/78 O2 Saturation 96 99 Oxygen O2 Source Room air PD Medical Decision Making - ED course Complexity details: considered differential (The patient has known disc disease and nerve root impingement in the lower cervical area with pre-existing numbness in the bilateral shoulders and anterior upper chest. She states she was doing more physical activity the last few days and has now this morning numbness also down to the umbilicus.), d/w patient ED course: Certainly there is concern for other areas of nerve root impingement. Previously known lower cervical I would presume since her prior numbness areas h ave been essentially C5 across the upper chest and to shoulders. However she now has numbness down near the umbilicus and she claimed contiguously from upper chest to the bellybutton area which would incorporate multiple nerve roots. Therefore I would be concern for partial cord impingement in the central canal. Given new symptoms like this, I feel an urgent MRI would be appropriate of not only the cervical but also thoracic area. She has had prior imaging of her neck with the last being at the I believe. This was about over a year ago. No more recent imaging. The patient denies any diagnoses of spinal MS or other conditions. Her increased activity had been of trip to [place] for several days and returning home yesterday which included having to lift and pull luggage onto the train and carrying some herself. This would be unusual activity for her. Departure - Departure Disposition: 01 Home, Self Care Clinical Impression: Cervical radiculopathy Condition: Good Record reviewed to determine appropriate education?: Yes Instructions: ED Cervical Radiculopathy Follow-Up: Kim Mcdonald MD [Primary Care Provider] - Tomorrow Prescriptions: methylPREDNISolone [Medrol] 4 mg PO DAILY #1 tab Comments: I have included a copy of your MRI below. Your prescriptions were sent to [facility] in [place]. Please follow-up with your doctor tomorrow as scheduled. Please return if you worsen. EXAM: [id number] MRI/THORWO ([id number]) PROCEDURE: Thoracic Spine WO INDICATIONS: new numbness down to lower abd level TECHNIQUE: Noncontrast sagittal T1 spine echo and T2 fast spin echo, sagittal STIR, axial T1 and T2 fast spin echo through the thoracic spine. COMPARISON: None. FINDINGS: Image quality: Excellent. Alignment and Curvature: There is normal bony alignment. Bone Marrow: Marrow is of normal overall signal. No acute vertebral body compression fractures. Spinal Cord: Visualized spinal cord is normal in size and signal. Paraspinous Soft Tissues: No paravertebral masses. Miscellaneous: On axial images, central canal and foramina appear widely patent at all scanned levels. Disc bulge at T6-7, T3-4 and T8-9 causing mild effacement of the spinal canal. IMPRESSION: Mild multilevel degenerative disc disease, without significant spinal canal or neural foraminal narrowing. EXAM: [id number] MRI/CERVWO ([id number]) PROCEDURE: Cervical Spine WO INDICATIONS: increased numb/weak arms/chest TECHNIQUE: Noncontrast sagittal T1 spin echo and T2 fast spin echo, sagittal STIR, foraminal oblique sagittal T2 fast spin echo, and axial gradient echo or T2 fast spin echo through the cervical spine. COMPARISON: CT 09/27/2011 FINDINGS: Image quality: Excellent. Alignment and Curvature: There is normal bony alignment. Bone Marrow: Marrow demonstrates normal overall signal. Spinal Cord: Visualized spinal cord has normal size and signal. No cerebellar tonsillar herniation. Marked hydrocephalus. Paraspinous Soft Tissues: No paravertebral masses. Prevertebral soft tissues are normal in thickness. C2-C3: Central disc herniation. C3-C4: Normal in appearance. C4-C5: Broad-based disc bulge. Effacement of the spinal canal. C5-C6: Broad-based disc bulge and uncovertebral hypertrophy. Moderate spinal canal narrowing. Moderate to severe neural foraminal narrowing on the left. Moderate on the right. C6-C7: Broad-based disc bulge and uncovertebral hypertrophy. Mild effacement of the spinal cord. Mild bilateral neural foraminal narrowing. C7-T1: Normal in appearance. IMPRESSION: Marked hydrocephalus, similar to comparison CT. Multilevel degenerative disc disease. This is most prominent at C5-6, with moderate spinal canal narrowing, moderate to severe left and moderate right neural foraminal narrowing. Forms: PCP List Discharge Date/Time: 10/29/23 16:40
[2023-10-29] MEDS: DEXAMETHASONE 10 MG/ML VIAL IVP STA (12:49)
[2023-10-29] MEDS: KETOROLAC 15 MG/ML VIAL IVP STA (12:51)
[2023-10-29] MEDS: ONDANSETRON 4 MG/2 ML VIAL IVP STA (13:01)
[2023-10-29] MEDS: HYDROmorphone 1 MG/ML CARPUJECT IVP STA (13:02)
--- NOTE | 2023-10-29 16:02 | MRI Report ---
PROCEDURE: Cervical Spine WO INDICATIONS: increased numb/weak arms/chest TECHNIQUE: Noncontrast sagittal T1 spin echo and T2 fast spin echo, sagittal STIR, foraminal oblique sagittal T2 fast spin echo, and axial gradient echo or T2 fast spin echo through the cervical spine. COMPARISON: CT 09/27/2011 FINDINGS: Image quality: Excellent. Alignment and Curvature: There is normal bony alignment. Bone Marrow: Marrow demonstrates normal overall signal. Spinal Cord: Visualized spinal cord has normal size and signal. No cerebellar tonsillar herniation. Marked hydrocephalus. Paraspinous Soft Tissues: No paravertebral masses. Prevertebral soft tissues are normal in thicknes s. C2-C3: Central disc herniation. C3-C4: Normal in appearance. C4-C5: Broad-based disc bulge. Effacement of the spinal canal. C5-C6: Broad-based disc bulge and uncovertebral hypertrophy. Moderate spinal canal narrowing. Modera te to severe neural foraminal narrowing on the left. Moderate on the right. C6-C7: Broad-based disc bulge and uncovertebral hypertrophy. Mild effacement of the spinal cord. Mil d bilateral neural foraminal narrowing. C7-T1: Normal in appearance. IMPRESSION: Marked hydrocephalus, similar to comparison CT. Multilevel degenerative disc disease. This is most prominent at C5-6, with moderate spinal canal narr owing, moderate to severe left and moderate right neural foraminal narrowing. Reviewed by: Isra Moore MD on 10/29/2023 4:01 PM PDT Approved by: Isra Moore MD on 10/29/2023 4:01 PM PDT Station ID: [id number]
--- NOTE | 2023-10-29 16:05 | MRI Report ---
PROCEDURE: Thoracic Spine WO INDICATIONS: new numbness down to lower abd level TECHNIQUE: Noncontrast sagittal T1 spine echo and T2 fast spin echo, sagittal STIR, axial T1 and T2 fast spin ec ho through the thoracic spine. COMPARISON: None. FINDINGS: Image quality: Excellent. Alignment and Curvature: There is normal bony alignment. Bone Marrow: Marrow is of normal overall signal. No acute vertebral body compression fractures. Spinal Cord: Visualized spinal cord is normal in size and signal. Paraspinous Soft Tissues: No paravertebral masses. Miscellaneous: On axial images, central canal and foramina appear widely patent at all scanned level s. Disc bulge at T6-7, T3-4 and T8-9 causing mild effacement of the spinal canal. IMPRESSION: Mild multilevel degenerative disc disease, without significant spinal canal or neural foraminal narro wing. Reviewed by: Isra Moore MD on 10/29/2023 4:03 PM PDT Approved by: Isra Moore MD on 10/29/2023 4:03 PM PDT Station ID: [id number]
--- NOTE | 2023-10-29 16:21 | ED Physician Documentation ---
ED Addendum - Addendum Addendum: 10/29/23 16:19 Patient was signed out to me by Dr. Mueller awaiting MRI results of her cervical and thoracic spines. These do not show any acute significant abnormalities. She has an appoint with her doctor tomorrow. She will speak to her doctor tomorrow about pain medications. We will place her on a Medrol Dosepak for home. Will have her follow-up with her inventory control specialist at the [facility] for further care. Patient counseled regarding signs and symptoms for which I believe and urgent re-evaluation would be necessary. Patient with good understanding of and agreement to plan and is comfortable going home at this time This document was made in part using voice recognition software. While efforts are made to proofread this document, sound alike and grammatical errors may occur. Departure - Departure Disposition: Home, Self Care Clinical Impression: Cervical radiculopathy Condition: Good Instructions: ED Cervical Radiculopathy Follow-Up: Kim Mcdonald MD [Primary Care Provider] - Tomorrow Prescriptions: methylPREDNISolone [Medrol] 4 mg PO DAILY #1 tab Comments: I have included a copy of your MRI below. Your prescriptions were sent to [facility] in [place]. Please follow-up with your doctor tomorrow as scheduled. Plea se return if you worsen. EXAM: [id number] MRI/THORWO ([id number]) PROCEDURE: Thoracic Spine WO INDICATIONS: new numbness down to lower abd level TECHNIQUE: Noncontrast sagittal T1 spine echo and T2 fast spin echo, sagittal STIR, axial T1 and T2 fast spin echo through the thoracic spine. COMPARISON: None. FINDINGS: Image quality: Excellent. Alignment and Curvature: There is normal bony alignment. Bone Marrow: Marrow is of normal overall signal. No acute vertebral body compression fractures. Spinal Cord: Visualized spinal cord is normal in size and signal. Paraspinous Soft Tissues: No paravertebral masses. Miscellaneous: On axial images, central canal and foramina appear widely patent at all scanned levels. Disc bulge at T6-7, T3-4 and T8-9 causing mild effacement of the spinal canal. IMPRESSION: Mild multilevel degenerative disc disease, without significant spinal canal or neural foraminal narrowing. EXAM: [id number] MRI/CERVWO ([id number]) PROCEDURE: Cervical Spine WO INDICATIONS: increased numb/weak arms/chest TECHNIQUE: Noncontrast sagittal T1 spin echo and T2 fast spin echo, sagittal STIR, foramin al oblique sagittal T2 fast spin echo, and axial gradient echo or T2 fast spin echo through the cervical spine. COMPARISON: CT 09/27/2011 FINDINGS: Image quality: Excellent. Alignment and Curvature: There is normal bony alignment. Bone Marrow: Marrow demonstrates normal overall signal. Spinal Cord: Visualized spinal cord has normal size and signal. No cerebellar tonsillar herniation. Marked hydrocephalus. Paraspinous Soft Tissues: No paravertebral masses. Prevertebral soft tissues are normal in thickness. C2-C3: Central disc herniation. C3-C4: Normal in appearance. C4-C5: Broad-based disc bulge. Effacement of the spinal canal. C5-C6: Broad-based disc bulge and uncovertebral hypertrophy. Moderate spinal canal narrowing. Moderate to severe neural foraminal narrowing on the left. Moderate on the right. C6-C7: Broad-based disc bulge and uncovertebral hypertrophy. Mild effacement of the spinal cord. Mild bilateral neural foraminal narrowing. C7-T1: Normal in appearance. IMPRESSION: Marked hydrocephalus, similar to comparison CT. Multilevel degenerative disc disease. This is most prominent at C5-6, with moderate spinal canal narrowing, moderate to severe left and moderate right neural foraminal narrowing. Forms: PCP List
[2023-10-29] MEDS: oxyCODONE 5 MG TABLET PO STA (16:27)
[2023-10-29 16:31] VITALS: BP 106/78; O2SAT 99
== END 2023-10-29 16:40 | disposition home or self-care (01) ==
LOC: ED 12:04
DX: M50.13 Cervical disc disorder with radiculopathy, cervicothoracic region (principal)
CPT/HCPCS: 72141; 72146; 96374; 96375; 99283; 99285; A9270; J1170

== ENCOUNTER 2023-12-24 02:43 | Emergency (ER) | payer MEDICARE ==
--- NOTE | 2023-12-24 02:45 | ED Physician Documentation ---
PD HPI Fall - Stated complaint Stated Complaint: GLF, AMS - History obtained from History obtained from: Family, EMS - History of Present Illness Mechanism of injury: Unknown - Additional information Additional information: BIBA. HPI from EMS as well as patient's spouse who is in the ED at patient's bedside. The patient cannot contribute to HPI/ROS due to severely altered mental status. 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 She immediately checked in the adjacent room (kitchen) and found this patient on the floor of the kitchen unconscious and not responding. FSBS 136 (per EMS check). The patient spouse says that earlier in the day the patient had been complaining of generalized malaise and sore throat, but otherwise no unusual complaints nor behavior. 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 - Present Medications Home Medications: Ambulatory Orders Medication Instructions Recorded Confirmed Ibuprofen [Motrin] 600 mg PO Q6H PRN 03/04/20 09/30/23 Baclofen [Lioresal] 1 tab PO DAILY 09/30/23 09/30/23 Lisinopril [Zestril] 1 tab PO DAILY 09/30/23 09/30/23 methylPREDNISolone [Medrol] 4 mg PO DAILY #1 tab 10/29/23 - Allergies Allergies/Adverse Reactions: Allergies Allergy/AdvReac Type Severity Reaction Status Date / Time No Known Drug Allergies Allergy Verified 12/24/23 02:52 - Social History Does the pt smoke?: No Smoking Status: Never smoker Does the pt drink ETOH?: Yes Does the pt have substance abuse?: No - Immunizations Immunizations are current?: Yes - POLST Patient has POLST: No PD ED PE NORMAL - Vitals Vital signs reviewed: Yes - General General: No acute distress, Well developed/nourished, Other (nonverbal, not following commands; briefly opens eyes when commanded but not consistently) - HEENT HEENT: Atraumatic, PERRL, Other (pasty mucous membranes) - Neck Neck: Other (cervical collar in place) - Cardiac Cardiac: RRR, No murmur - Respiratory Respiratory: No respiratory distress, Clear bilaterally - Abdomen Abdomen: Soft, Non tender - Extremities Extremities: No tenderness to palpate, Normal ROM s pain (patient does not react when I perform ROM on both shoulders and hips) - Neuro Eye Opening: To Voice Motor: Withdraws to Pain Verbal: None GCS Score: 8 Results - Vitals Vitals: Vital Signs - 24 hr 12/24/23 12/24/23 02:50 05:36 Temperature 35.7 C L Heart Rate 75 75 Respiratory 14 20 Rate Blood Pressure 108/77 112/72 O2 Saturation 96 99 Oxygen O2 Source Room air - Labs Labs: Laboratory Tests 12/24/23 12/24/23 12/24/23 03:19 03:19 03:19 WBC 10.7 RBC 4.72 Hgb 13.8 Hct 42.0 MCV 89.0 MCH 29.2 MCHC 32.9 RDW 13.6 Plt Count 306 MPV 10.9 H Neut # (Auto) 7.9 H Lymph # (Auto) 1.7 [place] # (Auto) 0.9 Eos # (Auto) 0.1 Baso # (Auto) 0.1 Absolute Nucleated RBC 0.00 Nucleated RBC % 0.0 Sodium 136 Potassium 3.8 Chloride 93 L Carbon Dioxide 28 Anion Gap 15.0 H BUN 37 H Creatinine 2.6 H Estimated GFR (MDRD) 19 L Glucose 159 H Calcium 10.2 Total Bilirubin 0.6 AST 26 ALT 20 Alkaline Phosphatase 77 Troponin I High Sens 3.0 Total Protein 8.0 Albumin 4.8 Globulin 3.2 Albumin/Globulin Ratio 1.5 Lipase 26 Ethyl Alcohol < 10.0 - Rads (name of study) CTH Relevant Findings:: Prelim report reviewed, See rad report CT cervical spine Relevant Findings:: Prelim report reviewed, See rad report chest xray Relevant Findings:: Prelim report reviewed, See rad report PD Medical Decision Making - ED course Complexity details: reviewed results, re-evaluated patient, considered differential, d/w family ED course: Unremarkable CBC, EKG. Normal hs-cTn (3.0). Elevated BUN (37), elevated creatinine (2.6). For comparative purposes, the most recent creatinine I have available in [place] was 1.2 from 2018. Most relevant finding on ED testing is "small areas of parenchymal hemorrhage within the right frontal lobe" (per radiologist's interpretation). Also noted are underlying hydrocephalus (known PMHx per spouse, and appears unchanged to me compared to CT head from 2012 (which is most recent CTH I have available in my records); the patient's says that patient gets annual CT heads at another facility). Although the patient gradually became more awake during ED observation, at no time did she verbally communicate in any way. Furthermore, she remained quite confused as indicated by her actions; despite instruction to do otherwise, the patient was removing her pulse oximeter, at times appeared to be trying to get out of the bed. She was not following commands at any point during ED stay. Given the ongoing AMS along with the findings on CTH, I contacted [facility] and patient is accepted for transfer to [facility] ED by Dr. Minaya (ED). Departure - Departure Disposition: 02 Transfer Acute Care Hosp Clinical Impression: Intraparenchymal hemorrhage of brain Condition: Stable Forms: PCP List Discharge Date/Time: 12/24/23 05:39
[2023-12-24 04:04] LABS: BASOPHILS # (AUTO) 0.1 10^3/uL (0.0-0.1); BASOPHILS % (AUTO) 0.5 %; EOSINOPHILS # (AUTO) 0.1 10^3/uL (0.0-0.7); EOSINOPHILS % (AUTO) 0.9 %; HGB - HEMOGLOBIN 13.8 g/dL (12.0-16.0); LYMPHOCYTES # (AUTO) 1.7 10^3/uL (1.5-3.5); LYMPHOCYTES % (AUTO) 15.6 %; MEAN CORPUSCULAR HEMOGLOBIN 29.2 pg (27.0-31.0); MEAN CORPUSCULAR HGB CONC 32.9 g/dL (32.0-36.0); MEAN PLATELET VOLUME 10.9 fL (7.9-10.8); MONOCYTES # (AUTO) 0.9 10^3/uL (0.0-1.0); MONOCYTES % (AUTO) 8.3 %; NEUTROPHILS # (AUTO) 7.9 10^3/uL (1.5-6.6); NEUTROPHILS % (AUTO) 74.2 %; PLT - PLATELET COUNT 306 10^3/uL (130-450); RED BLOOD COUNT 4.72 10^6/uL (4.20-5.40); RED CELL DISTRIBUTION WIDTH 13.6 % (12.0-15.0); WHITE BLOOD COUNT 10.7 x10^3/uL (4.8-10.8)
[2023-12-24 04:20] LABS: ALBUMIN 4.8 g/dL (3.2-5.5); ALBUMIN/GLOBULIN RATIO 1.5 (1.0-2.2); ALKALINE PHOSPHATASE 77 IU/L (42-121); ALT ALANINE AMINOTRANSFERASE 20 IU/L (10-60); AST ASPARTATE AMINOTRANSFERASE 26 IU/L (10-42); BILIRUBIN,TOTAL 0.6 mg/dL (0.2-1.0); BUN - BLOOD UREA NITROGEN 37 mg/dL (6-20); CALCIUM 10.2 mg/dL (8.5-10.3); CARBON DIOXIDE - CO2 28 mmol/L (21-32); CHLORIDE 93 mmol/L (101-111); CREATININE 2.6 mg/dL (0.6-1.3); ETOH - ETHANOL < 10.0 mg/dL; GFR - MDRD 19 (>89); GLUCOSE 159 mg/dL (74-104); LIPASE 26 U/L (11-82); POTASSIUM 3.8 mmol/L (3.5-4.5); SODIUM 136 mmol/L (135-145)
[2023-12-24 05:57] VITALS: BP 112/72; O2SAT 99
--- NOTE | 2023-12-24 07:55 | CT Report ---
PROCEDURE: Cervical Spine WO INDICATIONS: fall, AMS TECHNIQUE: Noncontrast 3 mm thick sections acquired from the skull base to the T4 level. Sagittal and coronal r eformats were then constructed. For radiation dose reduction, the following was used: automated exp osure control, adjustment of mA and/or kV according to patient size. COMPARISON: 06/27/2017. FINDINGS: Image quality: Excellent. Bones: No fractures or dislocations. Cervical spondylosis. Bilateral cervical facet arthropathy. Tr karli degenerative anterolisthesis of C4 on C5. Trace degenerative retrolisthesis of C5 on C6. Multilev el bony foraminal narrowing. Visualized superior ribs are intact. Soft tissues: Prevertebral soft tissues are normal in thickness. No paravertebral hematomas. No ap ical pneumothoraces. IMPRESSION: 1.No acute, displaced fracture or traumatic subluxation. 2. Cervical spondylosis. Findings are concordant with preliminary interpretation provided by [facility]. Reviewed by: Mika James MD on 12/24/2023 7:54 AM PDT Approved by: Mika James MD on 12/24/2023 7:54 AM PDT Station ID: [id number]
--- NOTE | 2023-12-24 07:59 | XRAY Report ---
PROCEDURE: Chest 1V INDICATIONS: chest pain TECHNIQUE: One view of the chest was acquired. COMPARISON: 06/27/2017. FINDINGS: Surgical changes and devices: None. Lungs and pleura: No pleural effusions or pneumothorax. Lungs are clear. Mediastinum: Mediastinal contours appear normal. Heart size is normal. Bones and chest wall: No suspicious bony lesions. Overlying soft tissues appear unremarkable. IMPRESSION: No acute cardiopulmonary process. Findings are concordant with preliminary interpretation provided by [facility]. Reviewed by: Mika James MD on 12/24/2023 7:58 AM PDT Approved by: Mika James MD on 12/24/2023 7:58 AM PDT Station ID: [id number]
--- NOTE | 2023-12-24 08:05 | CT Report ---
PROCEDURE: Head WO INDICATIONS: fall, AMS TECHNIQUE: Noncontrast 4.5 mm thick angled axial sections acquired from the foramen magnum to the vertex. For r adiation dose reduction, the following was used: automated exposure control, adjustment of mA and/or kV according to patient size. COMPARISON: None. FINDINGS: Image quality: Excellent. CSF spaces: Basal cisterns are patent. No extra-axial fluid collections. 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 Possible partial agene sis of the corpus callosum. Brain: No midline shift. There is focal cortical contusion near midline in the high far anterior rig ht frontal lobe. Reference axial image 28 of series 3 and coronal image 13 of series 7. There are als o tiny deep white matter areas of right frontal parenchymal hemorrhage. Reference image 13 of series 7 and image 12 of series 7. There is very subtle contusion in the inferior aspect of the right fronta l lobe as well. Reference image 14 of series 3 and image 12 of series 7 Cerna-white matter interface i s normal. Skull and face: Calvarium and visualized facial bones are intact, without suspicious lesions. Sinuses: Visualized sinuses and mastoids are clear. IMPRESSION: 1. Underlying marked dilatation the posterior horns of the lateral ventricles and possible partial ag enesis of the corpus callosum. Ventricular dilatation is a long-standing process. 2. Multiple areas of contusion present in the right frontal lobe. Findings are concordant with preliminary interpretation provided by [facility]. Reviewed by: Mika James MD on 12/24/2023 8:04 AM PDT Approved by: Mika James MD on 12/24/2023 8:04 AM PDT Station ID: [id number]
== END 2023-12-24 05:39 | disposition short-term general hospital (02) ==
LOC: EDUNIT# → ED 02:43
DX: I61.8 Other nontraumatic intracerebral hemorrhage (principal); I10 Essential (primary) hypertension
CPT/HCPCS: 36415; 70450; 71045; 72125; 80053; 83690; 84484; 85025; 93005; 99284; 99285; G0480; 82077